=== PATIENT | female | born 1955 | race Caucasian/White ===

== ENCOUNTER 2020-01-24 09:10 | Outpatient (CLI) | payer OTHER ==
--- NOTE | 2020-01-24 11:25 | ULT ---
ULTRASOUND GALLBLADDER RIGHT UPPER QUADRANT: Date: 01/24/2020 HISTORY: Epigastric pain. COMPARISON: None. FINDINGS: Real-time Rasheed scale and color evaluation of right upper quadrant of abdomen performed. Visualized portions of the aorta, IVC, and pancreas are unremarkable. Hepatic echotexture is normal. Liver measures 16.6 cm in length. No intrahepatic or extrahepatic biliary dilatation. Portal vein is patent with antegrade flow. The common bile duct is normal, measuring 4.0 mm. The gallbladder is normal. No pericholecystic fluid. No cholelithiasis. Right kidney measures 10.0 x 4.5 x 4.9 cm without mass, hydronephrosis, or abnormal calcifications. IMPRESSION: Normal examination. POS: HOME
== END 2020-01-24 09:11 | disposition home or self-care (01) ==
LOC: SCSULT 09:10
PROVIDERS: ATTEND Internal Medicine Gastroenterology
DX: R10.13 Epigastric pain (principal)
CPT/HCPCS: 76705

== ENCOUNTER 2022-08-01 08:47 | Outpatient (CLI) | payer BC | END 2022-08-01 08:48 | disposition home or self-care (01) | LOC: SCSRAD 08:47 | PROVIDERS: ATTEND Family Medicine | DX: M25.531 Pain in right wrist (principal) ==